=== PATIENT | female | born 1980 | race Asian ===

== ENCOUNTER → 2020-07-02 | Outpatient (CLI) | payer BC | END | disposition home or self-care (01) | LOC: CFH 12:09 | PROVIDERS: ATTEND Nurse Practitioner | DX: Z12.31 Encounter for screening mammogram for malignant neoplasm of breast (principal); Z12.39 Encounter for other screening for malignant neoplasm of breast; N63.12 Unspecified lump in the right breast, upper inner quadrant | CPT/HCPCS: 76641; 77063; 77067 ==